=== PATIENT | male | born 1975 | race Caucasian/White ===

== ENCOUNTER 2016-12-24 08:17 | Emergency (ER) | payer MEDICAID ==
[~2016-12-24] VITALS: Ht 185.4 cm; Wt 90.7 kg
[2016-12-24 08:20] VITALS: BP_SYST 131
--- NOTE | 2016-12-24 08:25 | NUR ---
Patient to ER bed 4 to gown for evaluation. Side rails up. Assumed care.
--- NOTE | 2016-12-24 08:26 | NUR ---
ER at bedside examining patient.
--- NOTE | 2016-12-24 08:27 | NUR ---
Pt bib EMS c/o anxiety s/p stopping taking Xanax RX. Pt AAOX4, pt appears anxious, denies CP or SOB . Pt denies other med hx.
[2016-12-24] MEDS ORDERED: ALPRAZolam 0.25 MG TABLET PO ONE (08:30)
--- NOTE | 2016-12-24 08:42 | NUR ---
Pt medicated.Pt tolerated well. Will monitor for improvement.
--- NOTE | 2016-12-24 09:10 | NUR ---
Pt reports improvement and anxiety resolving.
--- NOTE | 2016-12-24 09:16 | NUR ---
Patient given written and verbal discharge instructions and verbalizes understanding. ER MD discussed with patient the results and treatment provided. Patient in stable condition. ID arm band removed. Rx of xanax given. Patient educated on pain management and to follow up with PMD. Pain Scale 0. Opportunity for questions provided and answered.
== END 2016-12-24 09:18 | disposition home or self-care (01) ==
LOC: SED 08:20
DX: F41.0 Panic disorder [episodic paroxysmal anxiety] (principal)
CPT/HCPCS: 71010; 93005; 99284